=== PATIENT | female | born 1945 | race African-American/Black ===

== ENCOUNTER 2016-12-09 07:15 | Inpatient (IN) | payer BC, OTHER ==
[2016-12-03 14:23] LABS: HEMATOCRIT 38.7 % (36.0-48.0); HEMOGLOBIN 13.4 g/dL (12.0-16.0)
[2016-12-03 14:35] LABS: BUN (BLOOD UREA NITROGEN) 14 MG/DL (6-23); CALCIUM, SERUM 9.6 MG/DL (8.5-10.4); CHLORIDE, SERUM 107 MMOL/L (96-112); CO2 (CARBON DIOXIDE) 31 MMOL/L (24-34); CREATININE 1.08 MG/DL (0.55-1.02); GFR AFRICAN AMERICAN 59 ML/MIN (>=60); GFR NON AFRICAN AMERICAN 51 ML/MIN (>=60); GLUCOSE, SERUM 119 MG/DL (60-99); POTASSIUM, SERUM 4.3 MMOL/L (3.5-5.3); SODIUM, SERUM 142 MMOL/L (135-148)
--- NOTE | ~2016-12-09 | DS ---
Discharge Summary [facility] [address] [place]. [address] NAME: JAMES COLLAZO : 43 STATUS : DIS IN PAT#: [id number] AGE: 71 ADM/REG DATE : 12/09/16 MR#: [id number] REPORT SERV DATE: 12/24/16 DICTATED BY: ISSAC MANZANO DATE: 12/24/16 REPORT STATUS : Draft TRANSCRIBED BY: MODSusanne DATE: 12/24/16 Data Collection from hospitalization DISCHARGE DIAGNOSES: 1. Kxztxeji-zv-fmcveb spinal stenosis. 2. Severe disk degeneration, L3-L4 and L4-L5. 3. Type 2 diabetes mellitus. 4. Hypertension. 5. Osteoarthritis. 6. Gastroesophageal reflux disease. 7. Hyperthyroidism. 8. Chronic obstructive pulmonary disease. 9. History of pacemaker placement. 10.Former smoker. CONSULTATIONS: Dr. Myrtle Geronimo. PROCEDURES PERFORMED: Microscopic and navigation-assisted surgery; anterior retroperitoneal approach for an oblique lateral interbody diskectomy; interbody Clydesdale cage insertion and interbody fusion, L3-L4 and L4-L5; posterior percutaneous Voyager segmental instrumentation, L3-L5, 12/09/2016. PATHOLOGY: Lumbar spine repair-fragmented bone cartilage and soft tissue. No evidence was seen of an infectious or neoplastic process. MEDICATIONS: Aspirin 81 mg as needed, Lipitor 40 mg at bedtime, Caltrate plus D 600 mg daily, Neurontin 100 mg twice a day and 200 mg twice a day, [place] 5/325 one to two tablets every four hours as needed, Lantus 22 units subcutaneously every evening, Synthroid 100 mcg daily, Linzess 145 mcg before breakfast, Cozaar 25 mg every morning, Glucophage 1000 mg with breakfast and supper, Robaxin 500 mg every eight hours, Prilosec 40 mg every morning, Inderal 20 mg every morning, Inderal 40 mg at bedtime, Ranexa 1000 mg twice a day. CONDITION AT DISCHARGE: Stable. DISPOSITION: The patient was discharged home on a 2200-calorie diabetic diet with activities as instructed. She would follow up with Dr. Myrtle Geronimo four weeks following discharge- 01/14/2017 and would follow up with Beckie Clement, 12/24/2016. HOSPITAL COURSE: This is a 71-year-old female, who has spinal stenosis and severe disk degeneration. The spinal stenosis was moderate to severe in the foraminal zone. X-rays had revealed some loss of lordosis and also a significant loss of disk height and then foraminal entrapment. MRI showed significant facet and ligamentum flavum hypertrophy causing lateral recess and foraminal stenosis. Treatment options were discussed and it was elected to proceed with surgical intervention. She was admitted to the hospital at this time for further evaluation and treatment. Upon admission, she was taken to the operating room, where she underwent the above-mentioned procedure. She tolerated this well and there were no complications. On postop day one, she Discharge Summary [facility] [address] [facility] [place]. [address] NAME: JAMES COLLAZO : 43 STATUS : DIS IN PAT#: [id number] AGE: 71 ADM/REG DATE : 12/09/16 MR#: [id number] REPORT SERV DATE: 12/24/16 DICTATED BY: ISSAC MANZANO DATE: 12/24/16 REPORT STATUS : Draft TRANSCRIBED BY: LEONEL DATE: 12/24/16 was doing well. She did have some low back pain. She was placed on oral pain medications. On postop day two, O2 saturation was 96% on 2 L. We encouraged her to use incentive spirometry. She had no new complaints at present. Level 2 sliding scale insulin and metformin were continued. On the , she had no significant leg pain. She was passing flatus. She was seen in consultation by Dr. Myrtle Geronimo on the , regarding persistent hypoxemia postoperatively. She was currently complaining of dyspnea and a cough productive of yellow sputum. She said she has had a cough for approximately one week. She is on no inpatient or outpatient pulmonary medications. She had been diagnosed with COPD approximately three years ago. She said she had had dyspnea intermittently for several years. She had been given albuterol only. She did find the medication beneficial, but stopped taking it. She said she had not been on any outpatient medication for more than two years. She had never been on supplemental oxygen as an outpatient. She had complained of hypersomnolence for the past several years. She had received a Pneumovax less than a year ago. Oral azithromycin would be started for five days for bronchitis and we would check the sputum. If the patient did not have adequate response, Anoro Ellipta was going to be started daily as an inpatient. The patient would be discharged on this medication for her COPD. Albuterol was going to be started via nebulization every four hours. She would be discharged with an albuterol rescue inhaler. We would continue to use incentive spirometer and add EzPAP to her regimen. Oxygen would be weaned as tolerated and she may need some home supplemental oxygen. Outpatient spirogram was going to be performed. Outpatient lung cancer screening and CT scan of the chest were requested. She was counseled for more than five minutes regarding the importance of smoking cessation and possible adverse effects of continued tobacco use. Discharge planning continued. On 12/14/2016, discharge instructions were given. Due to her improved and stable condition, she was discharged home with the above-stated instructions. Information collected by: Alem Tellez I submit the above information as my discharge summary. CHLOÉ/LEONEL Issac Manzano D.O. / [id number] CC: Jane Peres MINDI
--- NOTE | ~2016-12-09 | CN ---
Consultation Report [address] [place]. [address] NAME: JAMES COLLAZO : 43 STATUS : ADM IN [facility]#: [id number] AGE: 71 ADM/REG DATE : 12/09/16 MR#: [id number] REPORT SERV DATE: 12/13/16 DICTATED BY: MYRTLE NÚÑEZ DATE: 12/13/16 REPORT STATUS : Draft TRANSCRIBED BY: MODL DATE: 12/13/16 PULMONARY CONSULTATION DATE OF CONSULTATION: 12/13/2016 REASON FOR CONSULTATION: Persistent hypoxia after spine surgery. HISTORY OF PRESENT ILLNESS: Ms. Collazo is a 71-year-old black female, smoker with COPD. Pulmonary was consulted for persistent hypoxia three days post spine surgery. She currently complains of dyspnea and cough productive of yellow sputum. She states she has had the cough for approximately one week. She denies wheezing, fever, chills, hemoptysis, chest pain, GERD symptoms, nasal symptoms, or chest tightness. She is on no inpatient or outpatient pulmonary medications. She was diagnosed with COPD approximately three years ago by her previous appliance service technician Dr. Rangel Pro. She states she has had dyspnea intermittently for several years. She self- referred to Dr. Pro and was given albuterol only. She did find the medication beneficial, but stopped taking it. She states she has not been on any outpatient medications for more than two years now. She is unsure if she had pulmonary function testing for her diagnosis of COPD, but feels "sure" that Dr. Pro did a CT scan of her chest approximately three years ago. She has never been on supplemental oxygen as an outpatient. She does complain of hypersomnolence for the past several years. She states she is frequently sleepy and it interferes with her activities. She has not had antibiotics for more than six months, but states she had a Pneumovax per her primary care physician less than one year ago. PAST MEDICAL HISTORY: 1. COPD as noted above. 2. Smoking/tobacco addiction. 3. Recent spine surgery. 4. Chronic back pain/osteoarthritis. 5. Hypertension. 6. Diabetes mellitus. 7. GERD. 8. Hypothyroidism. 9. Pacemaker. 10.Hysterectomy. 11.Partial thyroidectomy. 12.Appendectomy. 13.Cholecystectomy. Consultation Report [facility] [address] [address] NAME: JAMES COLLAZO : 43 STATUS : ADM IN [facility]#: [id number] AGE: 71 ADM/REG DATE : 12/09/16 MR#: [id number] REPORT SERV DATE: 12/13/16 DICTATED BY: MYRTLE NÚÑEZ DATE: 12/13/16 REPORT STATUS : Draft TRANSCRIBED BY: MODL DATE: 12/13/16 14.Previous shoulder surgery/rotator cuff repair. 15.Bilateral carpal tunnel release. 16.Cataract surgery. 17.Hyperlipidemia. 18.Peripheral neuropathy. 19.Hypothyroidism. FAMILY HISTORY: She denies a family history of pulmonary diseases. SOCIAL HISTORY: Ms. Collazo smoked one to one and a half packs of cigarettes per day and continued to smoke up until the time admission of admission. She states she smoked one pack of cigarettes per day on the day before admission. She previously worked at [employer] and had exposure to various dusts and chemicals while working there. She denies other occupational exposures, past/present drug use, ethanol intake, or chewing tobacco. She is a and has five children. She lives alone. MEDICATIONS: Outpatient and inpatient medications were reviewed and are as documented record. She has not been on pulmonary medications for approximately two years as noted above. She was on albuterol at one time, but denies other previous pulmonary medications. ALLERGIES: SHE DENIES MEDICATION ALLERGIES. REVIEW OF SYSTEMS: A 10-point system review was conducted and is remarkable for the symptoms as described in the history of present illness. She does complain of minimal postoperative back pain. PHYSICAL EXAMINATION: VITAL SIGNS: Temperature 98.7 degrees, heart rate 63, blood pressure 136/65, respiratory rate 20, oxygen saturation 95% on supplemental oxygen at a flow rate of 1 L/minute. GENERAL: Pleasant black female. Alert, oriented, no apparent distress. HEENT: Normocephalic. Atraumatic. There is no scleral icterus. The conjunctivae are clear. The oropharynx is clear. NECK: Supple. No lymphadenopathy or JVD was noted. LUNGS: There are diminished breath sounds throughout. The lungs are clear to auscultation bilaterally. Good effort. HEART: Regular rate and rhythm. No ectopy was noted. ABDOMEN: Soft. Nontender. Nondistended. There are normal bowel sounds in all four quadrants. No masses were noted. BILATERAL EXTREMITIES: There is no clubbing, cyanosis, or edema. NEUROLOGICAL: A limited exam was found to be nonfocal. SKIN: No rashes were noted. LABORATORY RESULTS: Labs were reviewed and are as documented in the record. The white blood cell count was 6.5. Consultation Report [facility] [id number] [place]. [address] NAME: JAMES COLLAZO : 43 STATUS : ADM IN PAT#: [id number] AGE: 71 ADM/REG DATE : 12/09/16 MR#: [id number] REPORT SERV DATE: 12/13/16 DICTATED BY: MYRTLE NÚÑEZ DATE: 12/13/16 REPORT STATUS : Draft TRANSCRIBED BY: LEONEL DATE: 12/13/16 IMAGING: No chest imaging was done this admission thus far. ASSESSMENT AND PLAN: Ms. Collazo is a 71-year-old black female, smoker with chronic obstructive pulmonary disease, acute bronchitis, and persistent hypoxia after spine surgery. She has been on no inpatient or outpatient pulmonary medications. Her hypoxia is likely related to possible atelectasis, acute bronchitis, and chronic obstructive pulmonary disease. RECOMMEND: 1. Baseline chest x-ray. 2. Oral azithromycin for five days for bronchitis, could check sputum if the patient does not have an adequate response. 3. Start Anoro Ellipta daily as an inpatient and discharge the patient on this medication for her COPD. 4. Start albuterol via nebulization every four hours. She should be discharged with an albuterol rescue inhaler. 5. Pulmonary toilet-continue incentive spirometer and add EzPAP to her regimen. 6. Wean oxygen as tolerated-she may need home supplemental oxygen. She was evaluated earlier today and did meet requirements. If she improves, would re-evaluate her prior to discharge. 7. Outpatient spirogram. 8. Outpatient lung cancer screening CT scan of the chest. 9. Outpatient evaluation for possible nocturnal hypoxia versus obstructive sleep apnea. 10.The patient does not desire follow up with Dr. Scottie Pro. Outpatient pulmonary followup has been arranged with our office, and she agrees to this plan. 11.She was counseled for more than five minutes regarding the importance of smoking cessation and possible adverse effects of continued tobacco use. Thank you very much for this consultation. CYN/LEONEL Myrtle Núñez M.D. / [id number] CC: Jane Peres MINDI
--- NOTE | ~2016-12-09 | OP ---
Record Of Operation [facility] [address] [place]. [address] NAME: JAMES COLLAZO : 43 STATUS : ADM IN PAT#: [id number] AGE: 71 ADM/REG DATE : 12/09/16 MR#: [id number] REPORT SERV DATE: 12/10/16 DICTATED BY: KRISTEN MANZANO DATE: 12/09/16 REPORT STATUS : Draft TRANSCRIBED BY: MODL DATE: 12/09/16 DATE OF PROCEDURE: 12/09/2016 PREOPERATIVE DIAGNOSIS: Thhksrgx-yg-mdwrjv spinal stenosis, severe disk degeneration, L3-L4 and L4-L5. POSTOPERATIVE DIAGNOSIS: Nheztajb-cm-mlbvst spinal stenosis, severe disk degeneration, L3-L4 and L4-L5. PROCEDURE: 1. Microscopic and navigation assisted surgery. 2. Anterior retroperitoneal approach for an oblique lateral interbody diskectomy, interbody Clydesdale cage insertion, interbody fusion, L3-L4 and L4-L5. 3. Posterior percutaneous Voyager segmental instrumentation, L3-L5. SURGEON: Kristen Manzano D.O. PATTERN DRUM MAKER: Ej Blanchard. ANESTHESIA: General. BLOOD LOSS: 50 mL. INDICATIONS FOR SURGERY: Listed in history and physical, see that for detail. DESCRIPTION OF PROCEDURE: Antibiotic prophylaxis given, Neurophysiology monitoring leads inserted, and the patient brought to the operative suite. General anesthetic including endotracheal intubation was administered. Archibald catheter was inserted with sterile technique. The patient placed in lateral decubitus position, the left side was up. Axillary roll was placed. The patient had the hips in a neutral alignment, the knees slightly flexed as he was taped across the top of the chest, the hips, and the knees and carefully secured to the bed. Once carefully secured, the isolation drapes were placed. The left side of the abdomen and pelvis, the left flank, and left thoracolumbar spine were scrubbed with Hibiclens solution. DuraPrep was painted. Sterile drapes applied. A small stab wound was carried out in left posterior superior iliac spine. A percutaneous pin with navigational frame attached was inserted in PSIS. Intraoperative CT scan with O- arm obtained, CT information used to register the navigational system. With navigational assistance, I identified the anterior approach to L3-L4 and L4-L5. I was approximately 6 cm anterior to the disk space, parallel with the disk space, and I marked the L3-L4 and L4-L5 levels. I then connected approximately a 3 cm slightly oblique skin incision. The subcutaneous tissue was sharply dissected. I then bluntly opened the external oblique muscle in line from cephalad to caudad. I then entered the internal oblique bluntly at the L3-L4 level, parallel with the disk space. I then finger dissected into the retroperitoneum and was able to palpate the quadratus lumborum, the transverse Record Of Operation [facility] [address] [place]. [address] NAME: JAMES COLLAZO : 43 STATUS : ADM IN PAT#: [id number] AGE: 71 ADM/REG DATE : 12/09/16 MR#: [id number] REPORT SERV DATE: 12/10/16 DICTATED BY: KRISTEN MANZANO DATE: 12/09/16 REPORT STATUS : Draft TRANSCRIBED BY: LEONEL DATE: 12/09/16 process of L4, and the psoas muscle. I localized the anterior border of the psoas muscle. I placed a blunt lighted retractor into the wound, and my registered sales assistant retracted the psoas posteriorly while I guarded the muscles anteriorly and medially. I then inserted a navigated initial dilator between my retractor anterior and medial and the posterior psoas retractor. I docked at the anterolateral corner of the psoas, and I was at the junction of the zone 1 and zone 2. Muscle dilators were inserted, followed by placement of a tubular retractor attached to an arm mount on the table. The microscope was sterilely draped and used throughout the remainder of the procedure. The retractor was slightly opened. We stimulated inside the circumference of the retractor to make sure there were no abnormal nerve findings. We then used a sterilely draped microscope and carried out a rectangular anulectomy involving the anterior half of the annulus. Then, we carried out an anterior and lateral diskectomy and as we inserted instruments into the interbody space, we would start anterolateral and as we moved across the disk space, we would then reposition into a direct lateral as we reached the contralateral side. Diskectomy was carried out, the endplate cartilage was removed, the contralateral annulus was released. We then did an intradiscal trial, and the same identical orthogonal maneuver was used to complete the interbody trial. We ultimately chose a 12 degree lordotic, 12 degree in height Clydesdale cage that was 22 mm in depth and 50 mm in length. The cage was filled with a combination of Magnifuse and extra-small dosage of bone protein. The cage was then inserted with navigational assistance using the same orthogonal maneuver. After it was properly positioned, the oiler bander was removed. We closed the retractor and then gently withdrew it under direct vision, noting the position of the psoas muscle. We also visualized the medial vessels. No abnormal findings. We also visualized the ureter, which was attached to the peritoneum. We then closed the internal oblique with interrupted 0 PDS sutures. I then moved distally and parallel with the disk space at L4-L5. We opened the internal oblique, once again bluntly dissecting into the retroperitoneum, once again placing the tubular retractor, stimulating the circumference of the retractor, and then carrying out a rectangular anulectomy. The L4-L5 diskectomy and interbody trial and interbody cage insertion with fusion was carried out in identical fashion as that just described. Once again, the retractor was removed. The internal oblique was closed in like fashion as described above. The external oblique was closed with interrupted 0 PDS suture. Subcutaneous tissue closed with 2-0 Vicryl sutures, 2-0 vertical mattress nylon suture was used for skin closure. Sterile dressings applied. The patient was then repositioned into a prone position. The bony prominences were carefully padded. Thoracolumbar spine was scrubbed with Hibiclens solution, DuraPrep was painted, and sterile drapes applied. Once again, the navigational system was re-registered. With navigational assistance, we identified the entry into the posterior portion of the pedicles of L3, L4, and L5 and approximately, a 5 cm skin incision was carried out just lateral to the facet joints from L3 Record Of Operation [facility] [address] [facility] [place]. [address] NAME: JAMES COLLAZO : 43 STATUS : ADM IN [facility]#: [id number] AGE: 71 ADM/REG DATE : 12/09/16 MR#: [id number] REPORT SERV DATE: 12/10/16 DICTATED BY: KRISTEN MANZANO DATE: 12/09/16 REPORT STATUS : Draft TRANSCRIBED BY: MODL DATE: 12/09/16 L5, left and right sides. The fascia was opened. We then percutaneously placed the Voyager pedicle nick and screw oiler bander. We tapped the pedicles of L3, L4 and L5, followed by placement of the polyaxial Voyager screws with screw extenders again at L3, L4, and L5 bilateral. Finally, the contoured captured delmy was inserted through the screw extenders and reduced into the tulip of the pedicle screws. The set screws were inserted and tightened with a torque wrench, providing rigid stability. The screw extenders were removed. Intraoperative CT scan with O-arm repeated, showing excellent position of all implants. There was good samaritan of the disk height and opening of the foramen bilaterally indirectly was well noted at L3-L4 and L4-L5. The fascial opening was closed with a single interrupted #1 Vicryl suture. The subcutaneous tissue closed with 2-0 Vicryl suture. 2-0 vertical mattress nylon suture used for skin closure. Sterile dressings applied. The patient awakened, extubated, taken to recovery room in satisfactory condition, having tolerated the procedure well. Sponge, needle, and instrument counts were correct. No intraoperative complications noted. SCAR/LEONEL Kristen Manzano D.O. / [id number] CC: Kristen Manzano D.O.
--- NOTE | ~2016-12-09 | PREOPHP ---
PreOp History and Physical [facility] [address] [place]. [address] NAME: JAMES COLLAZO : 43 STATUS : ADM IN [facility]#: [id number] AGE: 71 ADM/REG DATE : 12/09/16 MR#: [id number] REPORT SERV DATE: 12/09/16 DICTATED BY: ISSAC MANZANO DATE: 12/09/16 REPORT STATUS : Draft TRANSCRIBED BY: MODL DATE: 12/09/16 CHIEF COMPLAINT: Back pain. Bilateral leg pain. HISTORY OF PRESENT ILLNESS: A very pleasant 71-year-old female with spinal stenosis and severe disk degeneration. The spinal stenosis is moderate to severe in the foraminal zones. She has tried time, medication, therapy, etc. and nothing has helped. Plain x-rays reveal some loss of lordosis, also a significant loss of disk height, and then foraminal entrapment. She has some MRI significant facet and ligamentum flavum hypertrophy causing lateral recess and foraminal stenosis. Having failed conservative care, she is brought to surgery for an anterior retroperitoneal approach and then an oblique lateral diskectomy, interbody cage insertion, interbody fusion with Clydesdale cage will be utilized. Posterior percutaneous instrumentation will complete the surgery. Prior to surgery, risks, benefits, alternatives, and expectations were explained. Also please note, because of the complexity of surgery and the need to identify the correct level of surgery intraoperatively as well as desire to carry out the safest and most precise dissection with least amount of radiation exposure, I felt intraoperative navigation was mandatory. PAST MEDICAL HISTORY: Includes diabetes mellitus type 2, hypertension, osteoarthritis, gastroesophageal reflux disease, hyperthyroidism, COPD, and she has a pacemaker. PAST SURGICAL HISTORY: Cardiac created pacemaker implant; cataract extraction with lens implant; colonoscopy; carpal tunnel release bilateral; abdominal hysterectomy; partial thyroidectomy; shoulder arthroscopy; biceps tenodesis; and full-thickness rotator cuff repair in December of 2015. CURRENT MEDICATIONS: Include aspirin; atorvastatin; baclofen; gabapentin; Lantus insulin; levothyroxine; Linzess; losartan; metformin; Nitrostat; and Prilosec. ALLERGIES: NONE. SOCIAL HISTORY: She is single (). Lives alone. Still very self sufficient. Stopped smoking 2 months ago completely. Does not use any alcohol. FAMILY HISTORY: Noncontributory. REVIEW OF SYSTEMS: She denies current chest pain, pressure, or shortness of breath. Has no significant alteration of bowel and bladder function. PHYSICAL EXAMINATION: VITAL SIGNS: On 11/30/2016, weight 168 pounds, BMI is 25.5. GENERAL: She is alert, cooperative, well oriented. Ambulates independently. HEENT: Exam is grossly normal. LUNGS: Clear to auscultation. HEART: Regular and rhythmic. PreOp History and Physical [address] [address] NAME: JAMES COLLAZO : 43 STATUS : ADM IN PAT#: [id number] AGE: 71 ADM/REG DATE : 12/09/16 MR#: [id number] REPORT SERV DATE: 12/09/16 DICTATED BY: ISSAC MANZANO DATE: 12/09/16 REPORT STATUS : Draft TRANSCRIBED BY: LEONEL DATE: 12/09/16 ABDOMEN: Soft with good bowel sounds. No peritoneal signs noted. MUSCULOSKELETAL: The spine itself has no gross deformities. There is no step-offs in the midline. There is no pelvic obliquity or leg length discrepancies. She has no abnormal pain behaviors. Jasmin signs are negative. Fabere signs are negative. Straight leg raising signs are negative. Femoral nerve stretch tests are negative. She could not heel walk or toe walk due to pain in the back. She also has some feeling of imbalance when trying to heel or toe walk. Motor strengths are grossly intact, they were 5/5 for the iliopsoas, quadriceps, hamstring, tibialis anterior, gastroc soleus. No major sensory deficits other than some mild decreased stocking-glove sensation from just below the knees distally. Patellar reflexes are 1/4. Achilles reflexes are absent. There is no evidence of myelopathy. Toes are downgoing. No ankle clonus found. Orthopedically, she has no pain with moving hips, knees, or ankles. There are pulses in all four extremities. No abnormal skin lesions are found. ASSESSMENT AND RECOMMENDATIONS: As listed above. SCAR/LEONEL Issac Manzano D.O. / [id number] CC: Issac Manzano D.O.
[~2016-12-09 07:15] MED LIST: ACTOS15 PO; AMB10 PO; ASA5GR PO; ASAB PO; BENTYL20 PO; CALTRA600D PO; COREG3 PO; COZ25 PO; GLUCOPHAGE1000 MG PO; I40 PO; JANUMET1 TAB PO; LANTUS SC; LINZESS 145 M145 MCG PO; LIPITOR40 PO; LOP25 PO; NEUR100 PO; NITROSTAT0.3 MG SL; PLAVIX PO; PRILOSEC40 MG PO; RANEXA1000 MG PO; RANITIDINE300 MG PO; SUCR PO; SYN1 PO; VICTOZA18 MG/3 ML SC; ZOCOR20 PO
[2016-12-09 13:58] LABS: BASOPHILS 0.1 %; BASOPHILS ABSOLUTE 0.01 10/3/uL (0.0-0.16); EOSINOPHILS 1.7 %; EOSINOPHILS ABSOLUTE 0.15 10/3/uL (0.0-0.53); HEMOGLOBIN 11.6 g/dL (12.0-16.0); IMMATURE GRANULOCYTES 0.8 %; IMMATURE GRANULOCYTES ABSOLUTE 0.07 10/3/uL (0.0-0.11); LYMPHOCYTES 20.4 %; LYMPHOCYTES ABSOLUTE 1.84 10/3/uL (0.67-4.30); MEAN CORPUS HGB CONC 34.8 g/dL (32.0-36.0); MEAN CORPUSCULAR VOLUME 83.3 fL (80-100); MEAN PLATELET VOLUME 10.1 fL (9.2-13.0); MONOCYTES 8.1 %; MONOCYTES ABSOLUTE 0.73 10/3/uL (0.21-1.20); NEUTROPHILS 68.9 %; NEUTROPHILS ABSOLUTE 6.22 10/3/uL (2.02-8.40); PLATELET COUNT 189 10/3/uL (150-400); RBC DISTRIBUTION WIDTH 14.8 % (12.0-16.0)
[2016-12-09 14:03] LABS: HEMATOCRIT 33.3 % (36.0-48.0)
[2016-12-09 14:04] LABS: MANUAL DIFF NO %
[2016-12-09 14:10] LABS: BUN (BLOOD UREA NITROGEN) 15 MG/DL (6-23); CHLORIDE, SERUM 109 MMOL/L (96-112); CO2 (CARBON DIOXIDE) 27 MMOL/L (24-34); CREATININE 0.86 MG/DL (0.55-1.02); GFR AFRICAN AMERICAN 78 ML/MIN (>=60); GFR NON AFRICAN AMERICAN 67 ML/MIN (>=60); GLUCOSE, SERUM 102 MG/DL (60-99); POTASSIUM, SERUM 4.1 MMOL/L (3.5-5.3); SODIUM, SERUM 144 MMOL/L (135-148)
[2016-12-10 04:28] LABS: BASOPHILS 0 %; EOSINOPHILS 2.2 %; EOSINOPHILS ABSOLUTE 0.14 10/3/uL (0.0-0.53); HEMATOCRIT 33.9 % (36.0-48.0); HEMOGLOBIN 11.6 g/dL (12.0-16.0); IMMATURE GRANULOCYTES 0.3 %; IMMATURE GRANULOCYTES ABSOLUTE 0.02 10/3/uL (0.0-0.11); LYMPHOCYTES ABSOLUTE 0.65 10/3/uL (0.67-4.30); MEAN CORPUS HGB CONC 34.2 g/dL (32.0-36.0); MEAN CORPUSCULAR HEMOGLOB 28.8 pg (26.0-34.0); MEAN CORPUSCULAR VOLUME 84.1 fL (80-100); MEAN PLATELET VOLUME 10.4 fL (9.2-13.0); MONOCYTES 7.7 %; NEUTROPHILS 79.8 %; NEUTROPHILS ABSOLUTE 5.18 10/3/uL (2.02-8.40); PLATELET COUNT 175 10/3/uL (150-400); RBC DISTRIBUTION WIDTH 14.7 % (12.0-16.0); RED CELL COUNT 4.03 10/6/uL (4.0-5.6); WHITE BLOOD CELLS 6.5 10/3/uL (4.5-10.5)
[2016-12-10 04:30] LABS: MANUAL DIFF NO %
[2016-12-10 04:42] LABS: BUN (BLOOD UREA NITROGEN) 12 MG/DL (6-23); CALCIUM, SERUM 8.5 MG/DL (8.5-10.4); CHLORIDE, SERUM 105 MMOL/L (96-112); CREATININE 0.79 MG/DL (0.55-1.02); GFR AFRICAN AMERICAN 87 ML/MIN (>=60); GFR NON AFRICAN AMERICAN 75 ML/MIN (>=60); GLUCOSE, SERUM 88 MG/DL (60-99); POTASSIUM, SERUM 4.1 MMOL/L (3.5-5.3); SODIUM, SERUM 141 MMOL/L (135-148)
[2016-12-10 04:48] LABS: CO2 (CARBON DIOXIDE) 34 MMOL/L (24-34)
[2016-12-13 11:51] LABS: ASCORBIC ACID (UR NOT ORDER) NEG (NEG); BILIRUBIN, URINE NEGATIVE (NEG); KETONE, URINE NEGATIVE (NEG); WBC (NOT ORDERED) (RFLEX) 7 (0-5)
[2016-12-13 12:14] LABS: LEUKOCYTE ESTERASE(NOT OR TRACE (NEG)
[2016-12-14] MEDS ORDERED: METHOC500B PO (10:54)
[2016-12-14] MEDS ORDERED: NORCO1 TA1 PO (10:55)
== END 2016-12-14 14:55 | disposition home or self-care (01) | DRG 454 ==
LOC: SDC/OF 07:15 → PACU 13:21 → 3SO 14:29
PROVIDERS: Orthopaedic Surgery Orthopaedic Surgery of the Spine
PROC: 0ST20ZZ Resection of Lumbar Vertebral Disc, Open Approach (ICD-10-PCS; 2016-12-09)
PROC: 4A11X4G Monitoring of Peripheral Nervous Electrical Activity, Intraoperative, External Approach (ICD-10-PCS; 2016-12-09)
PROC: 0SG10A0 Fusion of 2 or more Lumbar Vertebral Joints with Interbody Fusion Device, Anterior Approach, Anterior Column, Open Approach (ICD-10-PCS; principal; 2016-12-09 09:15)
PROC: 0SG1071 Fusion of 2 or more Lumbar Vertebral Joints with Autologous Tissue Substitute, Posterior Approach, Posterior Column, Open Approach (ICD-10-PCS; 2016-12-09 09:15)
DX: M51.36 Other intervertebral disc degeneration, lumbar region (principal); J44.0 Chronic obstructive pulmonary disease with (acute) lower respiratory infection; F17.210 Nicotine dependence, cigarettes, uncomplicated; J20.9 Acute bronchitis, unspecified
CPT/HCPCS: 36415; 71020; 80048; 81001; 82962; 85014; 85018; 85025; 86850; 86900; 86901; 87641; 88304; 88311; 93005; 94640; 97110-GP; 97116-GP; 97161-GP; A9270-GY; C1713; J0690; J1644; J2250; J2370; J2405; J2710; J3010; J3480